=== PATIENT | female | born 1990 | race Caucasian/White ===

== ENCOUNTER 2018-11-01 08:40 | Day surgery (SDC) | payer MEDICAID, OTHER ==
[~2018-11-01] VITALS: Ht 165.1 cm; Wt 87.7 kg
[~2018-11-01 08:40] MED LIST: HYDR-3498 PO; IBUP-1542 PO; PREN1TAB12 PO; no meds taken
[2018-11-01 09:28] VITALS: Ht 165.1 cm; Wt 87.7 kg
[2018-11-01 09:55] VITALS: BP 109/64; PULSE 63; RESP 16
[2018-11-01] MEDS ORDERED: LIDOCAINE 4% SOLUTION 50 ML BTL ONE (10:24)
[2018-11-01] MEDS ORDERED: MIDAZOLAM 1 MG/ML 2 ML INJ ONE ×3 (11:08)
[2018-11-01] MEDS ORDERED: FENTAnyl 50 MCG/ML VIAL ONE (11:08)
[2018-11-01 11:10] VITALS: BP 102/67; PULSE 68; RESP 16
[2018-11-01 11:25] VITALS: BP 104/71; PULSE 72; RESP 16
== END 2018-11-01 11:36 | disposition home or self-care (01) ==
LOC: GIL 08:40
PROVIDERS: ATTEND Internal Medicine Gastroenterology
DX: K92.1 Melena (principal); K64.4 Residual hemorrhoidal skin tags; R12 Heartburn
CPT/HCPCS: 43239; 45378; 84703; 88305; 88312; J2250; J3010; Z7610